=== PATIENT | female | born 1955 | race Hispanic/Latino ===

== ENCOUNTER → 2017-09-13 | Outpatient (CLI) | payer MEDICARE ==
--- NOTE | 2017-09-13 10:19 | Diagnostic Imaging Report ---
Exam: Head CT without contrast History: Headache Comparison studies: None Technique: Axial images were obtained from the skull base to the vertex. Coronal and sagittal images reconstructed from the axial data. Intravenous contrast: None Findings: Scalp: No abnormalities. Bones: No fractures, blastic or lytic lesions. Brain sulci: Appropriate for age. Ventricles: Normal in size and configuration. No hydrocephalus. Extra-axial spaces: No masses, no fluid collection. Parenchyma: No abnormal densities. No masses, acute hemorrhage, acute or chronic vascular insults. Sellar/suprasellar region: No abnormalities. Craniocervical junction: Patent foramen magnum. No Chiari one malformation. IMPRESSION: No abnormalities. Signed by: Dr. Mono Torres M.D. on 09/13/2017 10:15 AM
== END ==
LOC: CT 09:26
PROVIDERS: ATTEND Internal Medicine
DX: R51 Headache (principal)
CPT/HCPCS: 70450

== ENCOUNTER → 2019-03-13 | Day surgery (SDC) | payer MEDICARE ==
[2019-03-11 14:51] LABS: BASOPHILS % 0.6 % (0.0-1.0); EOSINOPHILS # (AUTO) 0.2 (0.0-0.4); EOSINOPHILS % 2.6 % (0.0-6.0); HEMATOCRIT 40.5 % (34.2-44.1); HEMOGLOBIN 13.2 g/dL (12.0-16.0); LYMPHOCYTES # (AUTO) 1.8 (1.0-3.2); LYMPHOCYTES % 28.4 % (18.0-39.1); MEAN CORPUSCULAR HEMOGLOBIN 29.1 pg (28-32); MEAN CORPUSCULAR HGB CONC 32.6 g/dL (31-35); MEAN CORPUSCULAR VOLUME 89.4 fL (81-99); MONOCYTES # (AUTO) 0.5 (0.2-0.8); NEUTROPHILS % 61.2 % (38.7-80.0); PLATELET COUNT 280 x10e3/uL (140-360); RED BLOOD COUNT 4.53 x10e6/uL (3.6-5.1); RED CELL DISTRIBUTION WIDTH 13.2 % (11.7-14.4)
[2019-03-11 15:05] LABS: INR 0.92; PROTHROMBIN TIME 12.9 seconds (11.9-14.5)
[2019-03-11 15:13] LABS: ALANINE AMINOTRANSFERASE 30 IU/L (0-55); ALBUMIN 3.9 g/dL (3.5-5.0); ALBUMIN/GLOBULIN RATIO 0.9 (0.8-2.0); ALKALINE PHOSPHATASE 122 IU/L (40-150); ANION GAP 11.3 mmol/L (8-16); BLOOD UREA NITROGEN 9 mg/dL (7-26); BUN/CREATININE RATIO 11 (6-25); CALCIUM 9.8 mg/dL (8.4-10.2); CARBON DIOXIDE 28 mmol/L (22-29); CHLORIDE 104 mmol/L (98-107); EST GLOMERULAR FILTRATION RATE > 60 ML/MIN (60-); GLUCOSE 92 mg/dL (74-118); POTASSIUM 4.3 mmol/L (3.5-5.1); SODIUM 139 mmol/L (136-145)
[~2019-03-13] VITALS: Ht 162.6 cm; Wt 99.8 kg
[~2019-03-13] MED LIST: ASPIR 8181 MG PO; FENTANYL CITRATE/PF 100MCG/2 ML INJ ONE; HEPARIN SOD (PORCINE) 1000 UNIT/ML 30ML ONE; HEPARIN SOD/SOD CHLORIDE 2,000 ML ONE; IOPAMIDOL 370 MG/ML 200 ML INFUS..BTL INJ ONE; LIDOCAINE HCL 2% LOCAL 20 ML VIAL ONE; LINZESS PO; LIPITOR20 MG PO; MIDAZOLAM HCL 2 MG/2 ML VIAL ONE; NORTRIPTYLINE H50 MG PO; SODIUM CHLORIDE 0.9% 1000ML 1,000 ML ONE; TOPROL XL25 MG PO; VERAPAMIL HCL 2.5 MG/ML 2 ML VIAL ONE; ZOLOFT50 MG PO
--- OUTSIDE RECORDS SUMMARY | 2019-03-13 12:16 | XMS REPORT | Clinical Summary ---
Author Author [facility] Organization [facility] Address Unknown Phone Unavailable Care Team Providers Care Lockstitch Front Maker Name Role Phone Elva Worrell MD PCP Allergies No Known Allergies Medications End Date Status Medication Sig Dispensed Refills Start Date Active sertraline (ZOLOFT) 100 Take 200 mg 0 MG tablet by mouth nightly. Active nortriptyline (PAMELOR) Take 50 mg by 0 50 MG capsule mouth 9 nightly. Active metoprolol succinate XL Take 12.5 mg 0 (TOPROL-XL) 25 mg 24 hr by mouth tablet every morning. Active atorvastatin (LIPITOR) 40 Take 40 mg by 0 MG tablet mouth nightly. Active esomeprazole (NexIUM) 40 Take 40 mg by 0 MG capsule mouth every morning. Active aspirin (ECOTRIN) 81 MG Take 81 mg by 0 enteric coated tablet mouth every evening. Active linaCLOtide (LINZESS) 290 Take 290 mcg 0 mcg capsule by mouth daily as needed. 02/07/2019 Discontinued ibuprofen (ADVIL,MOTRIN) Take 200 mg 0 200 MG tablet by mouth every 6 (six) hours as needed for mild pain. Active Problems Problem Noted Date Chest pain 02/06/2019 Encounters Care Team Description Date Type Specialty Kemi Dyer RN 02/09/2019 Patient Quality Outreach de Blake Vargas MD Al-Lahiq, Maha, MD Chest pain, unspecified type (Primary Dx) 02/06/2019 Emergency General Internal Medicine - 02/07/2019 Teresita Hutchinson MD Lower abdominal pain (Primary Dx); Essential hypertension 02/05/2019 Emergency Emergency Medicine after 03/12/2018 Social History Date Tobacco Use Types Packs/Day Years Used Never Smoker Smokeless Tobacco: Never Used Alcohol Use Drinks/Week oz/Week Comments Not Currently Sex Assigned at Date Recorded Not on file Industry Job Start Date Occupation Not on file Not on file Not on file Travel End Travel History Travel Start No recent travel history available. Last Filed Vital Signs Time Taken Vital Sign Reading 02/07/2019 10:49 AM CDT Blood Pressure 145/68 02/07/2019 10:49 AM CDT Pulse 67 02/07/2019 10:49 AM CDT Temperature 36.6 C (97.9 F) 02/07/2019 10:49 AM CDT Respiratory Rate 18 02/07/2019 10:49 AM CDT Oxygen Saturation 96% - Inhaled Oxygen - Concentration 02/06/2019 1:19 AM CDT Weight 99.8 kg (220 lb) 02/06/2019 1:19 AM CDT Height 157.5 cm (5' 2") 02/06/2019 1:19 AM CDT Body Mass Index 40.24 Plan of Treatment Health Maintenance Due Date Last Done Comments BREAST CANCER SCREENING 2006 COLONOSCOPY SCREENING 2006 SHINGLES VACCINES (#1) 2006 INFLUENZA VACCINE 03/19/2019 Procedures Comments Procedure Name Priority Date/Time Associated Diagnosis THYROID STIMULATING Routine 02/07/2019 HORMONE 5:44 AM CDT LIPID PANEL Routine 02/07/2019 5:44 AM CDT ECHOCARDIOGRAM 2D Routine 02/06/2019 COMPLETE W MMODE SPECTRAL 3:11 PM CDT COLOR DOPPLER (98000) ESTIMATED GFR Routine 02/06/2019 9:25 AM CDT TROPONIN Timed 02/06/2019 9:25 AM CDT COMPREHENSIVE METABOLIC Routine 02/06/2019 PANEL 9:25 AM CDT HC COMPLETE BLD COUNT Routine 02/06/2019 W/AUTO DIFF 9:25 AM CDT TROPONIN Timed 02/06/2019 5:[address] ANGIOGRAM PE CHEST STAT 02/06/2019 3:07 AM CDT XR CHEST 1 VW PORTABLE STAT 02/06/2019 1:35 AM CDT D-DIMER STAT 02/06/2019 1:35 AM CDT ESTIMATED GFR STAT 02/06/2019 1:35 AM CDT B NATRIURETIC PEPTIDE STAT 02/06/2019 1:35 AM CDT COMPREHENSIVE METABOLIC STAT 02/06/2019 PANEL 1:35 AM CDT HC COMPLETE BLD COUNT STAT 02/06/2019 W/AUTO DIFF 1:35 AM CDT TROPONIN STAT 02/06/2019 1:35 AM CDT ECG 12-LEAD STAT 02/06/2019 1:19 AM CDT ECG ED PRELIMINARY Routine 02/06/2019 INTERPRETATION 1:[address] ABDOMEN PELVIS W STAT 02/05/2019 CONTRAST 4:37 PM CDT GRAM STAIN STAT 02/05/2019 4:23 PM CDT URINE CULTURE STAT 02/05/2019 4:23 PM CDT URINALYSIS SCREEN AND STAT 02/05/2019 MICROSCOPY, WITH REFLEX 4:12 PM CDT TO CULTURE ESTIMATED GFR STAT 02/05/2019 3:10 PM CDT HEPATIC FUNCTION PANEL STAT 02/05/2019 3:10 PM CDT LIPASE LEVEL STAT 02/05/2019 3:10 PM CDT BASIC METABOLIC PANEL STAT 02/05/2019 3:10 PM CDT HC COMPLETE BLD COUNT STAT 02/05/2019 W/AUTO DIFF 3:10 PM CDT after 03/12/2018 Results * Thyroid stimulating hormone (02/07/2019 5:44 AM CDT) TSH 2.48 0.27 - 4.20 uIU/mL [facility] Specimen Plasma specimen Performing Organization Address [facility] [place] Number [place] [address] [address] [place] [phone] PATHOLOGY AND GENOMIC MEDICINE [facility] [address] [address] * Lipid panel (02/07/2019 5:44 AM CDT) Cholesterol 129 <200 mg/dL [facility] Triglycerides 95 (A) <150 mg/dL [facility] HDL cholesterol 55 >40 mg/dL [facility] LDL cholesterol 64Comment: Result obtained by <100 mg/dL [facility] direct LDL measurement [facility] Lipid panel [facility] interpretation Comment: [facility] Total Cholesterol [facility] (mg/dL) <200 Desirable 200-239Borderline -high >=240High Triglycerides (mg/dL) <150 Normal 150-199Borderline -high 200-499High >=500Very high HDL Cholesterol (mg/dL) <40Low (male) <40Low (female) LDL Cholesterol (mg/dL) <100 Optimal 100-129Near or above optimal 130-159Borderline -high 160-189High >=190Very high Risk Catergories that modify LDL goals. Risk Catergories LDL goal (mg/dL) CHD and CHD risk equivalent<100 (10-year risk >20%) Multiple (2+) risk factors <130 (10-year risk=<20%) 0-1 risk factors <160 (<10-year risk) Defining levels of lipids in metabolic syndrome Triglycerides >=150 mg/dL HDL Cholesterol Men <40 mg/dL Women <40 mg/dL Non-HDL cholesterol is a second target for therapy in persons with high triglycerides (>=200 mg/dL) Specimen Plasma specimen Performing Organization Address [facility] Cent[facility]ode [place] [address] [address] [place] [phone] PATHOLOGY AND GENOMIC MEDICINE [facility] [address] * Echocardiogram complete w contrast and 3D if needed (02/06/2019 3:11 PM CDT) Velocity Ratio 0.72 m/s [facility] (V1/V2) IVS,d 1.14 cm [facility] Ao root annulus 3.21 cm [facility] EF 59.51 % [facility] LA volume 31.00 cm3 [facility] LVPWD,d 0.84 cm [facility] AoV Mean PG 6.06 mmHg [facility] AV LVOT peak 5.99 mmHg [facility] gradient MV valve area p 3.45 cm2 [facility] 1/2 method E/A ratio 0.80 [facility] E wave 196.20 msec [facility] decelartion time LVOT Diam,S 1.86 cm [facility] LVOT area 2.72 cm2 [facility] LVOT Vmax 1.22 m/s [facility] LVOT VTI 0.24 m [facility] AoV Peak PG 11.46 mmHg [facility] MV Peak E Ghassan 0.76 m/s [facility] MV stenosis 63.82 ms [facility] pressure 1/2 time MV Peak A Ghassan 0.95 m/s [facility] LV Vol,s A2C 30.42 mL [facility] LV Vol,d A2C 86.18 mL [facility] AoV Area, Vmax 1.97 cm2 [facility] AoV Area, VTI 2.00 cm2 [facility] AoV Vmax 1.69 m/s [facility] LA Area d A4C 39 cm2 [facility] LV,d 4.06 cm [facility] LV,s 2.79 cm [facility] LV Vol,d A4C 93.97 ml [facility] LV Vol,s A4C 35.49 ml [facility] RVSP (TR) 20.28 mmHg [facility] TR Vpeak 2.25 mm/s [facility] MV E A ratio 0.81 SYNGO RA pressure 5.00 mmHg [facility] TR pk grad 25 mmHg [facility] MR peak grad 41.56 mmHg [facility] RVSP 20.28 mmHg [facility] LV SYS VOL 29.32 ml [facility] LV MONTOYA VOL 72.41 ml [facility] LA diam s 3.50 cm [facility] LA Vol MOD A4C 38.54 ml [facility] LV SV Teich 2D 43.09 ml [facility] LVOT SI 32.29 ml/m2 [facility] AoV Cusp sep 1.82 [facility] Aortic Root 3.20 cm [facility] AoV Vmn 1.14 [facility] IVS s 2D 1.53 [facility] LA Ao Ratio 1.08 [facility] Mmode D E excurs 1.30 [facility] E f slope 0.13 [facility] E prime lat 0.10 [facility] E shannon sept 0.09 [facility] PV acc T slope 8.10 [facility] PV AT 93.43 msec [facility] AoV VTI 0.32 m [facility] LV EF,A2C 64.70 % [facility] LV EF,A4C 62.23 % [facility] LV EF,BP 62.32 % [facility] [place],d A2C 7.18 cm [facility] [place],d A4C 7.13 cm [facility] [place],s A2C 5.63 cm [facility] [place],s A4C 6.23 cm [facility] LV SV,A2C 55.75 % [facility] LV SV,A4C 58.48 % [facility] LV Vol,d BP 90.02 ml [facility] LV Vol,s BP 33.92 nl [facility] MR Vmax 3.22 m/s [facility] LVOT Vmn 0.77 [facility] Pt Size 157.48 [facility] Pt Wt 99.79 [facility] LVOT mean grad 2.70 mmHg [facility] LVPW s PLAX 1.37 cm [facility] MV Decel slope 3.89 m/s2 [facility] Specimen Narrative Performed At [facility] Left ventricular systolic function is normal. Left Ventricular ejection fraction is 55 - 60%. Spectral Doppler shows impaired relaxation pattern of left ventricular diastolic filling. Suboptimal study. Valve structure and right atrium not well visualized. Performing Organization Address City/State/Zipcode Phone Number [facility] [address] [place] [address] * Estimated GFR (02/06/2019 9:25 AM CDT) Only the most recent of 3 results within the time period is included. Estimated GFR 68 mL/min/1.73 m2 [facility] Comment: ORTHODOXY CLEAR [facility] rpretation G1 >=90 Normal or high G2 60-89Mildly decreased A3p47-85 Mildly to moderately decreased [id number] Moderately to severely decreased G4 15-29Severely decreased G5 <15Kidney failure The eGFR was calculated using the Chronic Kidney Disease Epidemiology Collaboration (CKD-EPI) equation. Interpretation is based on recommendations of the National Kidney Foundation-Kidney Disease Outcomes Quality Initiative (NKF-KDOQI) published in 2014. Specimen Plasma specimen Performing Organization Address City/[facility]/Zipcode Phone Number [address] [place] [address] PATHOLOGY AND GENOMIC MEDICINE [address] * Troponin (02/06/2019 9:25 AM CDT) Only the most recent of 3 results within the time period is included. Pathologist [facility] Troponin <0.006 0.000 - 0.040 ng/mL [facility] Comment: [facility] changed methodology effective: 12/23/2018 at 10:00 am The new method has a 99th percentile cutoff of 0.040 ng/mL Specimen Plasma specimen Performing Organization Address [facility] Phone Number [address] [place] [address] PATHOLOGY AND GENOMIC MEDICINE [address] * CBC with platelet and differential (02/06/2019 9:25 AM CDT) Only the most recent of 3 results within the time period is included. Pathologist [facility] WBC 6.42 4.50 - 11.00 k/uL [facility] RBC 4.09 (L) 4.20 - 5.50 m/uL [facility] HGB 12.1 12.0 - 16.0 g/dL [facility] HCT 37.7 37.0 - 47.0 % [facility] MCV 92.2 82.0 - 100.[address] [facility] MCH 29.6 27.0 - 34.[address] [facility] MCHC 32.1 31.0 - 37.0 g/dL [facility] RDW - SD 44.7 37.0 - 55.[address] [facility] MPV 10.4 8.8 - 13.[address] [facility] Platelet count 263 150 - 400 k/uL [facility] Nucleated RBC 0.00 /[address] [facility] Neutrophils 61.5 39.0 - 69.0 % [facility] Lymphocytes 26.5 25.0 - 45.0 % [facility] Monocytes 8.6 0.0 - 10.0 % [facility] Eosinophils 2.5 0.0 - 5.0 % [facility] Basophils 0.6 0.0 - 1.0 % [facility] Specimen Blood Performing Organization Address City/State/Zipcode [place] Number [place] [address] [place] [address] PATHOLOGY AND GENOMIC MEDICINE [facility] [address] [place] [address] [facility] * Comprehensive metabolic panel (02/06/2019 9:25 AM CDT) Only the most recent of 2 results within the time period is included. Sodium 144 135 - 148 mEq/L [facility] Potassium 3.8 3.5 - 5.0 mEq/L [facility] Chloride 105 98 - 112 mEq/L [facility] CO2 27 24 - 31 mEq/L [facility] Anion gap 12@ANIO 7 - 15 mEq/L [facility] BUN 13 8 - 23 mg/dL [facility] Creatinine 0.90 0.50 - 0.90 mg/dL [facility] Glucose 107 (H) 65 - 99 mg/dL [facility] Calcium 9.3 8.8 - 10.2 mg/dL [facility] Protein 7.6 6.3 - 8.3 g/dL [facility] Comment: [facility] 4.6-7.0 g/dL 1 week 4.4-7.6 g/dL 7 months-1year 5.1-7.3 g/dL 1-2 years5.6-7 .5 g/dL >3 years6.0-8 .0 g/dL 18-150 6.3-8.3 g/dL Albumin 3.9 3.5 - 5.0 g/dL [facility] A/G ratio 1.1 0.7 - 3.[address] [facility] Alkaline 117 (H) 35 - 104 U/L [facility] phosphatase [facility] AST 15 10 - 35 U/L [facility] ALT 20 5 - 50 U/L [facility] Total bilirubin 0.2 0.0 - 1.2 mg/dL [facility] Specimen Plasma specimen Performing Organization Address City/State/Zipcode [place] Number [place] [address] [place] [address] PATHOLOGY AND GENOMIC MEDICINE [facility] [address] [place] [address] [facility] * CT Angiogram Pe Chest (02/06/2019 3:07 AM CDT) Specimen Narrative Performed At EXAMINATION:CT ANGIOGRAM PE CHEST RADIANT CLINICAL HISTORY: pleuritic cpelevated d-dimer TECHNIQUE:CT angiographic images of the chest were obtained during intravenous administration of iodinated contrast. Computerized reformatted images and 3-D MIP images were also obtained and archived (CT pulmonary embolus protocol).CT scans are performed using radiation dose reduction techniques.Technical factors are evaluated and adjusted to ensure appropriate moderation of exposure.Automated dose management technology is applied to adjust radiation exposure while achieving a diagnostic quality image. CT imaging was performed with iterative reconstruction techniques and/or automated exposure control to reduce radiation dose. COMPARISON:None. Findings: There are no filling defects within the pulmonary arterial system to suggest a pulmonary embolus. No dissection or aneurysm is seen. Left lingular subsegmental atelectasis is seen. No consolidation or pleural effusion is seen. No pulmonary mass or nodule is seen. No mediastinal hematoma or lymphadenopathy is seen. Visualized upper abdomen shows no acute abnormality. Small hepatic cyst in the left lobe is noted measuring 2.2 cm. IMPRESSION: 1. No evidence of pulmonary embolus. 2. Left lingular subsegmental atelectasis. Otherwise no acute abnormality identified in the chest. [facility]-[id number] Procedure Note Interface, Radiology Results Incoming - 02/06/2019 3:20 AM CDT EXAMINATION: CT ANGIOGRAM PE CHEST CLINICAL HISTORY: pleuritic cp elevated d-dimer TECHNIQUE: CT angiographic images of the chest were obtained during intravenous administration of iodinated contrast. Computerized reformatted images and 3-D MIP images were also obtained and archived (CT pulmonary embolus protocol). CT scans are performed using radiation dose reduction techniques. Technical factors are evaluated and adjusted to ensure appropriate moderation of exposure. Automated dose management technology is applied to adjust radiation exposure while achieving a diagnostic quality image. CT imaging was performed with iterative reconstruction techniques and/or automated exposure control to reduce radiation dose. COMPARISON: None. Findings: There are no filling defects within the pulmonary arterial system to suggest a pulmonary embolus. No dissection or aneurysm is seen. Left lingular subsegmental atelectasis is seen. No consolidation or pleural effusion is seen. No pulmonary mass or nodule is seen. No mediastinal hematoma or lymphadenopathy is seen. Visualized upper abdomen shows no acute abnormality. Small hepatic cyst in the left lobe is noted measuring 2.2 cm. IMPRESSION: 1. No evidence of pulmonary embolus. 2. Left lingular subsegmental atelectasis. Otherwise no acute abnormality identified in the chest. [id number] Performing Organization Address [facility] Phone Number [facility] [address] [place] [address] * XR Chest 1 Vw Portable (02/06/2019 1:35 AM CDT) Specimen Narrative Performed At Examination:XR CHEST 1 VW PORTABLE RADIANT Clinical History:chest pain Comparison: None. Technique: Single frontal view of the chest is obtained. Findings: Left base subsegmental atelectasis is seen. The heart size is normal. No pleural effusion is seen. Impression: Mild left base subsegmental atelectasis otherwise no acute infiltrate. [facility]-[id number] Procedure Note Hm Interface, Radiology Results Incoming - 02/06/2019 1:54 AM CDT Examination: XR CHEST 1 VW PORTABLE Clinical History: chest pain Comparison: None. Technique: Single frontal view of the chest is obtained. Findings: Left base subsegmental atelectasis is seen. The heart size is normal. No pleural effusion is seen. Impression: Mild left base subsegmental atelectasis otherwise no acute infiltrate. [id number] Performing Organization Address [facility] Phone Number [facility] [address] [place] [address] * D-dimer (02/06/2019 1:35 AM CDT) D-dimer 0.65 (H) 0.00 - 0.40 ug/mL [facility] Comment: FEU ORTHODOXY CLEAR Units are ug/ml Fibrinogen [facility] Equivalent Unit. When combined with low clinical probability, D-dimer results of less than 0.5 ug/ml FEU have a good negativepredictive value in excluding PE or DVT. For D-dimer results greater than 0.5ug/ml FEU further testing is indicated if PE or DVT is suspectedclinically. Elevated D-dimer results have been reported in DVT, PE, and DIC cases and may indicate the presence of a clot. D-dimer results may be elevated due to old age, , inflammatory diseases, trauma, post-operative states, sepsis, and malignancies. Specimen Blood Performing Organization Address [facility] Phone Number [address] [place] [address] PATHOLOGY AND GENOMIC MEDICINE [address] * B natriuretic peptide (02/06/2019 1:35 AM CDT) BNP 13 0 - 100 pg/mL [facility] Specimen Blood Performing Organization Address [facility] Phone Number [address] [place] [address] PATHOLOGY AND GENOMIC MEDICINE [address] * ECG 12 lead (02/06/2019 1:19 AM CDT) Ventricular 73 [facility] rate Atrial rate 73 [facility] [place] interval 158 [facility] QRSD interval 100 [facility] QT interval 412 [facility] QTC interval 453 [facility] P axis 1 49 [facility] QRS axis 1 -13 [facility] T wave axis 6 [facility] EKG impression Normal sinus rhythm-Normal [facility] ECG-No previous ECGs available- Specimen Narrative Performed At Performing Organization Address [facility] Phone Number [facility] M[facility] [address] [place] [address] * ECG ED Preliminary Interpretation - Not an Order (02/06/2019 1:18 AM CDT) Narrative Performed At Blake Mcintyre MD 02/06/20194:12 AM ECG ED Preliminary Interpretation - Not an Order Performed by: Blake Mcintyre MD Authorized by: Blake Mcintyre MD ECG reviewed by ED Physician in the absence of a parachute crown sewer: no Interpretation: Interpretation: normal Rate: ECG rate:63 ECG rate assessment: normal Rhythm: Rhythm: sinus rhythm QRS: QRS axis:Normal QRS intervals:Normal Conduction: Conduction: normal ST segments: ST segments:Normal T waves: T waves: inverted Inverted:V3 * CT Abdomen Pelvis W Contrast (02/05/2019 4:37 PM CDT) Specimen Narrative Performed At EXAMINATION:CT ABDOMEN PELVIS W CONTRAST RADIANT CLINICAL HISTORY: lower abd pain TECHNIQUE: Multiple axial images of the abdomen and pelvis were obtained following intravenous administration of iodinated contrast. Sagittal and coronal computerized reformatted images were also obtained. Approximately 100 cc of Omnipaque [address] scan performed using radiation dose reduction techniques. Technical factors are evaluated and adjusted to ensure appropriate moderation of exposure. Automated dose management technology is applied to adjust the radiation dose to minimize expose whileachieving a diagnostic quality image. COMPARISON:None. FINDINGS: Lung bases: Patchy left basilar platelike subsegmental atelectasis and bibasilar dependent atelectasis are noted.. Liver: The liver is normal in contour and size. Fatty infiltration of the liver is seen. 2 cysts are seen within the lateral segment of the left lobe of the liver with the largest cyst measuring approximately 1.8 cm. No enhancing mass is seen. There is no intrahepatic biliary dilatation.. . Gallbladder: Unremarkable. Pancreas: Moderate fatty infiltration of the pancreas is noted. The pancreas is otherwise unremarkable. No inflammatory process. The pancreatic duct is within normal limits. Spleen: The spleen is normal in appearance.. Kidneys and ureters: The kidneys function symmetrically. An approximately 2.1 cm exophytic cyst is seen within the lower pole of the left kidney. There is no enhancing renal lesion. No renal stone is seen. There is no evidence of hydronephrosis.. The ureters are normal in course and caliber. Adrenal glands: Unremarkable. GI tract: The small bowel is normal in course and caliber. Scattered diverticula are seen of the descending colon and sigmoid colon. Postsurgical change of anastomosis of the sigmoid colon is noted. The colon is otherwise unremarkable. No bowel wall thickening is identified. There is no acute inflammatory process. The appendix is normal. No right lower quadrant inflammation is seen. The stomach is unremarkable. Fluid: None. Pelvis: Bladder: The urinary bladder is unremarkable. Genitalia: Limited evaluation of the uterus and ovaries is unremarkable. Fluid: None. Bones: Unremarkable. Retroperitoneum/intraperitoneum: No retroperitoneal or mesenteric pathologic lymphadenopathy is seen. Vasculature: No evidence of aortic aneurysm or dissection.The mesenteric vessels and visceral vessel are patent. Abdominal wall: Unremarkable. IMPRESSION: Mild diverticulosis without evidence of acute diverticulitis. No CT evidence of appendicitis, gastroenteritis or small bowel obstruction. Bosniak category 1 left renal cyst. Mild hepatitic steatosis and 2 simple left hepatitic cysts. Unremarkable exam otherwise. [id number] Procedure Note Hm Interface, Radiology Results Incoming - 02/05/2019 4:56 PM CDT EXAMINATION: CT ABDOMEN PELVIS W CONTRAST CLINICAL HISTORY: lower abd pain TECHNIQUE: Multiple axial images of the abdomen and pelvis were obtained following intravenous administration of iodinated contrast. Sagittal and coronal computerized reformatted images were also obtained. Approximately 100 cc of Omnipaque [address] scan performed using radiation dose reduction techniques. Technical factors are evaluated and adjusted to ensure appropriate moderation of exposure. Automated dose management technology is applied to adjust the radiation dose to minimize expose while achieving a diagnostic quality image. COMPARISON: None. FINDINGS: Lung bases: Patchy left basilar platelike subsegmental atelectasis and bibasilar dependent atelectasis are noted.. Liver: The liver is normal in contour and size. Fatty infiltration of the liver is seen. 2 cysts are seen within the lateral segment of the left lobe of the liver with the largest cyst measuring approximately 1.8 cm. No enhancing mass is seen. There is no intrahepatic biliary dilatation.. . Gallbladder: Unremarkable. Pancreas: Moderate fatty infiltration of the pancreas is noted. The pancreas is otherwise unremarkable. No inflammatory process. The pancreatic duct is within normal limits. Spleen: The spleen is normal in appearance.. Kidneys and ureters: The kidneys function symmetrically. An approximately 2.1 cm exophytic cyst is seen within the lower pole of the left kidney. There is no enhancing renal lesion. No renal stone is seen. There is no evidence of hydronephrosis.. The ureters are normal in course and caliber. Adrenal glands: Unremarkable. GI tract: The small bowel is normal in course and caliber. Scattered diverticula are seen of the descending colon and sigmoid colon. Postsurgical change of anastomosis of the sigmoid colon is noted. The colon is otherwise unremarkable. No bowel wall thickening is identified. There is no acute inflammatory process. The appendix is normal. No right lower quadrant inflammation is seen. The stomach is unremarkable. Fluid: None. Pelvis: Bladder: The urinary bladder is unremarkable. Genitalia: Limited evaluation of the uterus and ovaries is unremarkable. Fluid: None. Bones: Unremarkable. Retroperitoneum/intraperitoneum: No retroperitoneal or mesenteric pathologic lymphadenopathy is seen. Vasculature: No evidence of aortic aneurysm or dissection. The mesenteric vessels and visceral vessel are patent. Abdominal wall: Unremarkable. IMPRESSION: Mild diverticulosis without evidence of acute diverticulitis. No CT evidence of appendicitis, gastroenteritis or small bowel obstruction. Bosniak category 1 left renal cyst. Mild hepatitic steatosis and 2 simple left hepatitic cysts. Unremarkable exam otherwise. [id number] Performing Organization Address City/[facility]/[place] [address] * Gram stain (02/05/2019 4:23 PM CDT) Pathologist [facility] Gram stain No WBC's or organisms seen. CRAIG result Comment: ORTHODOXY Specimen [facility] Specimen Source: Urine Specimen Site: Clean catch Specimen Urine Performing Organization Address City/[facility] Phone Number [facility] DEPARTMENT OF [address] [place] [address] PATHOLOGY AND GENOMIC MEDICINE [address] * Urine culture (02/05/2019 4:23 PM CDT) Pathologist [facility] Urine culture Mixed gabino <=10-3 col/cc CRAIG isolate Comment: ORTHODOXY Specimen Information HOSPITAL Specimen Source: Urine Specimen Site: Clean catch Specimen Urine Performing Organization Address [facility] Phone Number [facility] DEPARTMENT OF [address] [place] [address] PATHOLOGY AND GENOMIC MEDICINE [address] * Urinalysis screen and microscopy, with reflex to culture (02/05/2019 4:12 PM CDT) Specimen site Clean catch [facility] Color, UA Straw [facility] Appearance, UA Clear [facility] Specific 1.004 1.001 - 1.035 C[facility]IG gravity, UA [facility] pH, UA 6.0 5.0 - 8.[address] [facility] Protein, UA Negative Negative [facility] Glucose, UA Negative Negative [facility] Ketones, UA Negative Negative [facility] Bilirubin, UA Negative Negative [facility] Blood, UA Negative Negative [facility] Nitrite, UA Negative Negative [facility] Urobilinogen, Negative <2.0 [facility] Leukocyte Trace (A) Negative CRAIG esterase, UA [facility] Epithelial Few Few /HPF [facility] cells, UA [facility] Round Few 0 - 1 /HPF [facility]IG epithelial [facility] cells, [facility] WBC, UA 0-5 0 - 4 /HPF [facility] RBC, UA 0-5 0 - 5 /HPF [facility] Bacteria, UA Few None seen [facility] Yeast, UA None seen [facility] Yeast with None seen [facility] Specimen Urine Performing Organization Address City/[facility] Phone Number [address] [place] [address] PATHOLOGY AND GENOMIC MEDICINE [address] * Lipase level (02/05/2019 3:10 PM CDT) Lipase 19 13 - 60 U/L [facility] Specimen Plasma specimen Performing Organization Address City/[facility] Phone Number [address] [place] [address] PATHOLOGY AND GENOMIC MEDICINE [address] * Hepatic function panel (02/05/2019 3:10 PM CDT) Albumin 3.9 3.5 - 5.0 g/dL [facility] Total bilirubin <0.2 0.0 - 1.2 mg/dL [facility] Bilirubin <0.1 0.0 - 0.3 mg/dL [facility] direct [facility] Alkaline 118 (H) 35 - 104 U/L [facility] phosphatase [facility] Protein 8.0 6.3 - 8.3 g/dL CRAIG Comment: [facility] 4.6-7.0 g/dL 1 week 4.4-7.6 g/dL 7 months-1year 5.1-7.3 g/dL 1-2 years5.6-7 .5 g/dL >3 years6.0-8 .0 g/dL 18-150 6.3-8.3 g/dL ALT 24 5 - 50 U/L [facility] AST 17 10 - 35 U/L [facility] Specimen Plasma specimen Performing Organization Address City/[facility] Phone Number [facility] [place] [id number] [place] [address] [place] [address] PATHOLOGY AND GENOMIC MEDICINE [facility] [id number] [place] [address] * Basic metabolic panel (02/05/2019 3:10 PM CDT) Sodium 140 135 - 148 mEq/L [facility] Potassium 3.9 3.5 - 5.0 mEq/L [facility] Chloride 103 98 - 112 mEq/L [facility] CO2 27 24 - 31 mEq/L [facility] Anion gap 10@ANIO 7 - 15 mEq/L [facility] BUN 13 8 - 23 mg/dL [facility] Creatinine 0.90 0.50 - 0.90 mg/dL [facility] Glucose 128 (H) 65 - 99 mg/dL [facility] Calcium 9.0 8.8 - 10.2 mg/dL [facility] Specimen Plasma specimen Performing Organization Address City/[facility] Cent[facility] Phone Number [facility] DEPARTMENT OF [address] [place] [address] [place] [address] PATHOLOGY AND GENOMIC MEDICINE [address] after 03/12/2018 Insurance Type Payer Benefit Subscriber ID Effective Phone Address Plan / Dates Group [facility] xxxxxxxx 2019-P SAUD boles Advance Directives Patient has advance care planning documents, and code status on file. For more i nformation, please contact: Tremaine Espinoza [address] [place] [address] Date Inactivated Comments Code Status Date Activated 02/07/2019 6:45 PM Full Code 02/06/2019 7:09 AM Code Status decision reached by: Patient
--- OUTSIDE RECORDS SUMMARY | 2019-03-13 12:17 | XMS REPORT ---
[facility] Address Unknown Phone Unavailable Care Team Providers Care Health [facility] Manager Name Role Phone ANTOLIN GERBER Unavailable Unavailable Payers Payer Name Policy Type Policy Number Effective Date Expiration Date Problems This patient has no known problems. Allergies, Adverse Reactions, Alerts Allergy Name Allergy Type Status Severity Reaction(s) Onset Date Inactive Date Treating Clinician Comments No Known Allergies DA Active U 2017-12-01 00:00:00 Medications This patient has no known medications. Encounters Start Date/Time End Date/Time Encounter Type Admission Type Attending Clinicians Care Facility Care Department Encounter ID 2018-04-09 00:00:00 2018-04-09 00:00:00 Outpatient [facility] [id number] 2017-08-01 00:00:00 2017-08-01 00:00:00 Outpatient [facility] [id number] 2017-06-18 00:00:00 2017-06-18 00:00:00 Outpatient [facility] [id number] 2017-05-06 08:00:13 2017-05-06 08:00:13 Outpatient [facility] [id number] 2017-04-30 10:47:53 2017-04-30 10:47:53 Outpatient [facility] [id number] 2017-04-30 08:03:55 2017-04-30 08:03:55 Outpatient [facility] [id number] 2017-03-28 13:43:34 2017-03-28 13:43:34 Outpatient [facility] [id number] 2017-02-14 10:58:14 2017-02-14 10:58:14 Outpatient [facility] [id number] 2017-01-31 08:48:19 2017-01-31 08:48:19 Outpatient [facility] [id number] 2017-01-18 06:55:56 2017-01-18 06:55:56 Outpatient [facility] [id number] 2017-01-18 00:00:00 2017-01-18 00:00:00 Outpatient [facility] [id number] 2017-01-11 00:00:00 2017-01-11 00:00:00 Outpatient [facility] [id number] 2017-01-07 10:38:20 2017-01-07 10:38:20 Outpatient [facility] [id number] 2017-01-07 10:38:20 2017-01-07 10:38:20 Outpatient [facility] [id number] 2017-01-04 10:21:37 2017-01-04 10:21:37 Outpatient [facility] [id number] 2017-01-03 09:02:31 2017-01-03 09:02:31 Outpatient [facility] [id number] 2017-01-02 12:01:39 2017-01-02 12:01:39 Outpatient [facility] [id number] 2016-12-31 10:54:35 2016-12-31 10:54:35 Outpatient [facility] [id number] 2016-12-28 10:11:20 2016-12-28 10:11:20 Outpatient [facility] [id number] 2016-12-27 09:07:18 2016-12-27 09:07:18 Outpatient [facility] [id number] 2016-12-27 00:00:00 2016-12-27 00:00:00 Outpatient [facility] [id number] 2016-12-26 09:56:42 2016-12-26 09:56:42 Outpatient [facility] [id number] 2016-12-26 09:56:39 2016-12-26 09:56:39 Outpatient [facility] [id number] 2016-12-25 11:01:34 2016-12-25 11:01:34 Outpatient [facility] [id number] 2016-12-25 10:15:58 2016-12-25 10:15:58 Outpatient [facility] [id number] 2016-12-24 09:55:59 2016-12-24 09:55:59 Outpatient [facility] [id number] 2016-12-24 08:25:11 2016-12-24 08:25:11 Outpatient [facility] [id number] 2016-12-21 10:33:55 2016-12-21 10:33:55 Outpatient [facility] [id number] 2016-12-19 00:00:00 2016-12-19 00:00:00 Outpatient [facility] [id number] 2016-12-17 09:35:27 2016-12-17 09:35:27 Outpatient [facility] [id number] 2016-12-17 09:35:26 2016-12-17 09:35:26 Outpatient [facility] [id number] 2016-12-14 00:00:00 2016-12-14 00:00:00 Outpatient [facility] [id number] 2016-12-12 12:18:51 2016-12-12 12:18:51 Outpatient [facility] [id number] 2016-12-10 08:21:37 2016-12-10 08:21:37 Outpatient [facility] [id number] 2016-12-10 08:21:35 2016-12-10 08:21:35 Outpatient [facility] [id number] 2016-12-07 13:14:41 2016-12-07 13:14:41 Outpatient [facility] [id number] 2016-12-07 10:11:29 2016-12-07 10:11:29 Outpatient [facility] [id number] 2016-12-05 12:12:00 2016-12-05 12:12:00 Outpatient [facility] [id number] 2016-12-03 10:51:33 2016-12-03 10:51:33 Outpatient [facility] [id number] 2016-11-30 00:00:00 2016-11-30 00:00:00 Outpatient [facility] [id number] 2016-11-28 13:26:34 2016-11-28 13:26:34 Outpatient [facility] [id number] 2016-11-28 10:06:14 2016-11-28 10:06:14 Outpatient [facility] [id number] 2016-11-27 07:44:41 2016-11-27 07:44:41 Outpatient [facility] [id number] 2016-11-26 10:30:57 2016-11-26 10:30:57 Outpatient [facility] [id number] 2016-11-23 10:02:27 2016-11-23 10:02:27 Outpatient [facility] [id number] 2016-11-21 11:30:27 2016-11-21 11:30:27 Outpatient [facility] [id number] 2016-11-21 10:18:39 2016-11-21 10:18:39 Outpatient [facility] [id number] 2016-11-19 11:01:13 2016-11-19 11:01:13 Outpatient [facility] [id number] 2016-11-19 10:29:44 2016-11-19 10:29:44 Outpatient [facility] [id number] 2016-11-12 13:33:14 2016-11-12 13:33:14 Outpatient [facility] [id number] 2016-11-08 09:59:44 2016-11-08 09:59:44 Outpatient [facility] [id number] 2016-11-07 08:30:20 2016-11-07 08:30:20 Outpatient [facility] [id number] 2016-10-31 00:00:00 2016-10-31 00:00:00 Outpatient [facility] [id number] 2016-10-30 11:50:35 2016-10-30 11:50:35 Outpatient [facility] [id number] 2016-10-24 09:29:23 2016-10-24 09:29:23 Outpatient [facility] [id number] 2016-10-17 09:27:32 2016-10-17 09:27:32 Outpatient [facility] [id number] 2016-10-13 07:09:58 2016-10-13 07:09:58 Outpatient [facility] [id number] 2016-10-12 10:01:01 2016-10-12 10:01:01 Outpatient [facility] [id number] 2016-10-09 09:10:42 2016-10-09 09:10:42 Outpatient [facility] [id number] 2016-10-04 09:29:44 2016-10-04 09:29:44 Outpatient [facility] [id number] 2016-10-03 07:08:29 2016-10-03 07:08:29 Outpatient [facility] [id number] 2016-08-08 08:30:22 2016-08-08 08:30:22 Outpatient [facility] [id number] 2016-08-02 09:38:18 2016-08-02 09:38:18 Outpatient [facility] [id number] 2016-07-18 07:53:03 2016-07-18 07:53:03 Outpatient [facility] [id number] 2016-06-27 10:48:12 2016-06-27 10:48:12 Outpatient [facility] [id number] 2016-06-22 10:33:39 2016-06-22 10:33:39 Outpatient [facility] [id number] Results Test Description Test Time Test Comments Text Results Atomic Results Result Comments COMPREHENSIVE METABOLIC PANEL 2018-12-08 13:45:00 SODIUM (test code=NA) 141 mmol/L 135-148 POTASSIUM (test code=K) 3.7 mmol/L 3.5-5.1 CHLORIDE (test code=CL) 104 mmol/L 101-109 CARBON DIOXIDE (test code=CO2) 30.8 mmol/L 21-32 ANION GAP (test code=GAP) 10 mmol/L 10-20 GLUCOSE (test code=GLU) 96 mg/dL 74-106 BLOOD UREA NITROGEN (test code=BUN) 16 mg/dL 3-21 CREATININE (test code=CREAT) 0.86 mg/dL 0.55-1.3 BUN/CREATININE RATIO (test code=BUN/CREA) 18.6 10-20 TOTAL PROTEIN (test code=PROT) 8.1 g/dL 6.5-8.4 ALBUMIN (test code=ALB) 3.6 g/dL 3.4-4.8 GLOBULIN (test code=GLOB) 4.5 G/DL 1-10 ALBUMIN/GLOBULIN RATIO (test code=A/G) 0.8 RATIO 0.75-1.50 CALCIUM (test code=CA) 8.8 mg/dL 8.4-10.2 BILIRUBIN TOTAL (test code=BILT) 0.20 mg/dL 0.0-1.0 SGOT/AST (test code=AST) 18 U/L 6-32 SGPT/ALT (test code=ALT) 41 U/L 12-78 Note: Change in REFERENCE RANGE due to new reagent method. ALKALINE PHOSPHATASE TOTAL (test code=ALKP) 122 U/L 38-126 CPK-MB [id number] 13:45:00* Test Item Value Reference Range Comments CREATINE KINASE (CK) (test code=CK) 154 U/L 26-192 CKMB (test code=CKMBT) 0.8 ng/mL 0.0-5.0 RELATIVE % INDEX (test code=REL%) 0.5 % [id number] 13:45:00* Test Item Value Reference Range Comments TROPONIN-I (test code=TROPI) <0.015 ng/mL 0.00-0.056 URINALYSIS [id number] 13:34:00* Test Item Value Reference Range Comments UA COLOR (test code=COLU) YELLOW YELLOW UA APPEARANCE (test code=APPU) CLEAR CLEAR UA GLUCOSE DIPSTICK (test code=DGLUU) norm mg/dL NEGATIVE UA BILIRUBIN DIPSTICK (test code=BILU) NEGATIVE mg/dL NEGATIVE UA KETONE DIPSTICK (test code=KETU) neg mg/dL NEGATIVE UA SPECIFIC GRAVITY (test code=SGU) 1.010 1.001-1.035 UA BLOOD DIPSTICK (test code=ADAN) neg Raulito/uL NEGATIVE UA PH DIPSTICK (test code=CHRISTIANE) 7.0 5.0-8.0 UA PROTEIN DIPSTICK (test code=PROU) neg mg/dL Neg-15 UA UROBILINIOGEN DIPSTICK (test code=URO) norm mg/dL 0.0-0.2 UA NITRITE DIPSTICK (test code=MACRINA) NEGATIVE NEGATIVE UA LEUKOCYTE ESTERASE DIPSTICK (test code=LEUU) 25 Dianna/uL (Trace) uL NEGATIVE UA WBC (test code=WBCU) 0-5 per HPF 0-5 UA RBC (test code=RBCU) 0-2 per HPF 0-5 UA EPITHELIAL CELLS (test code=EPIU) None seen per HPF Few UA BACTERIA (test code=BACU) NONE SEEN per HPF NONE Urine Source? Clean CatchCOMPREHENSIVE METABOLIC [id number] 13:32:00* Test Item Value Reference Range Comments SODIUM (test code=NA) 141 mmol/L 135-148 POTASSIUM (test code=K) 3.7 mmol/L 3.5-5.1 CHLORIDE (test code=CL) 104 mmol/L 101-109 CARBON DIOXIDE (test code=CO2) 30.8 mmol/L 21-32 ANION GAP (test code=GAP) 10 mmol/L 10-20 GLUCOSE (test code=GLU) 96 mg/dL 74-106 BLOOD UREA NITROGEN (test code=BUN) 16 mg/dL 3-21 CREATININE (test code=CREAT) 0.86 mg/dL 0.55-1.3 BUN/CREATININE RATIO (test code=BUN/CREA) 18.6 10-20 TOTAL PROTEIN (test code=PROT) gram/dL 6.4-8.2 ALBUMIN (test code=ALB) g/dL 3.4-5.0 GLOBULIN (test code=GLOB) g/dL 2.7-4.2 ALBUMIN/GLOBULIN RATIO (test code=A/G) 0.75-1.50 CALCIUM (test code=CA) 8.8 mg/dL 8.4-10.2 BILIRUBIN TOTAL (test code=BILT) mg/dL 0.2-1.2 SGOT/AST (test code=AST) IUnit/L 15-37 SGPT/ALT (test code=ALT) U/L 10-69 ALKALINE PHOSPHATASE TOTAL (test code=ALKP) IUnit/L 45-117 CPK-MB [id number] 13:32:00* Test Item Value Reference Range Comments CREATINE KINASE (CK) (test code=CK) IUnit/L 26-208 CKMB (test code=CKMBT) ng/mL 0-6.0 RELATIVE % INDEX (test code=REL%) % [id number] 13:32:00* Test Item Value Reference Range Comments TROPONIN-I (test code=TROPI) ng/mL 0-0.045 URINALYSIS [id number] 13:30:00* Test Item Value Reference Range Comments UA COLOR (test code=COLU) YELLOW YELLOW UA APPEARANCE (test code=APPU) CLEAR CLEAR UA GLUCOSE DIPSTICK (test code=DGLUU) norm mg/dL NEGATIVE UA BILIRUBIN DIPSTICK (test code=BILU) NEGATIVE mg/dL NEGATIVE UA KETONE DIPSTICK (test code=KETU) neg mg/dL NEGATIVE UA SPECIFIC GRAVITY (test code=SGU) 1.010 1.001-1.035 UA BLOOD DIPSTICK (test code=ADAN) neg Raulito/uL NEGATIVE UA PH DIPSTICK (test code=CHRISTIANE) 7.0 5.0-8.0 UA PROTEIN DIPSTICK (test code=PROU) neg mg/dL Neg-15 UA UROBILINIOGEN DIPSTICK (test code=URO) norm mg/dL 0.0-0.2 UA NITRITE DIPSTICK (test code=MACRINA) NEGATIVE NEGATIVE UA LEUKOCYTE ESTERASE DIPSTICK (test code=LEUU) 25 Dianna/uL (Trace) uL NEGATIVE UA WBC (test code=WBCU) per HPF 0-5 UA RBC (test code=RBCU) per HPF 0-5 UA EPITHELIAL CELLS (test code=EPIU) per HPF Few UA BACTERIA (test code=BACU) per HPF NONE Urine Source? Clean Catch- CT HEAD/BRAIN W/O [id number] 13:27:00 Name: LOAN THOMPSON [facility] : 1955 Age/S: 63 / F [address] [facility] Unit #: [id number] Loc: [place] [address] Phys: Laura Merchant MD Acct: [id number] Di s Date: Status: REG ER PHONE #: Exam Date: 12/08/2018 1305 FAX #: Reason: altered mental status EXAMS: CPT CODE: [id number] CT HEAD/BRAIN W/O CONT 19769 HISTORY: Confusion and di zziness. COMPARISON: None available CT brain without contrast: Automated exposure control. No acute intracranial bleeds or extra-axial collections are noted. No acute territorial vascular infa rction is noted. The sulci, gyri, ventricles and subarachnoid spac es and the basilar cisterns are normal for patient's age. No herniation or hydrocephalus or midline shift is noted. Mild periventricul ar ischemic gliosis is noted. Age-appropriate atrophy is noted as well. Portions of the visualized paranasal sinuses are normal. No obvious bony calvarial defect is noted. Unfused posterior arch of C1 vertebral body. IMPRESSION: No acute intracra nial bleeds or extra-axial collections. No acute territorial v ascular infarction. No herniation or hydrocephalus or midline shift. Chronic white matter ischemic disease and atrophy . Electronically Signed by Margaux Bernabe on 11/18 at 1327 Reported and signed by: Naga Tilley CC: Antolin Gerber MD; Lori Merchant MD Technologist :Martina Trujillo CTDI: DLP: Trnscb Date/Time: 11/18 (1327) [email or web address] Orig Print D/T: S: 12/08/2018 () CTDI: DLP: PAGE 1 Signed Repo rt CBC W/AUTO [id number] 13:17:00* Test Item Value Reference Range Comments WHITE BLOOD CELL (test code=WBC) 6.0 K/mm3 4.5-12.5 RED BLOOD CELL (test code=RBC) 4.65 mill/mm3 3.7-5.2 HEMOGLOBIN (test code=HGB) 13.7 gram/dL 11.5-15.5 HEMATOCRIT (test code=HCT) 42.7 % 36.0-46.0 MEAN CELL VOLUME (test code=MCV) 91.8 fL 80-98 MEAN CELL HGB (test code=MCH) 29.5 picogram 27.0-33.0 MEAN CELL HGB CONCETRATION (test code=MCHC) 32.1 gram/dL 33.0-36.0 RED CELL DISTRIBUTION WIDTH (test code=RDW) 13.7 % 11.6-16.2 RED CELL DISTRIBUTION WIDTH SD (test code=RDW-SD) 45.4 fL 39.1-52.0 PLATELET COUNT (test code=PLT) 282 K/mm3 150-450 MEAN PLATELET VOLUME (test code=MPV) 10.4 fL 6.7-11.0 NEUTROPHIL % (test code=NT%) 56.6 % 39.0-69.0 LYMPHOCYTE % (test code=LY%) 33.2 % 25.0-55.0 MONOCYTE % (test code=MO%) 8.1 % 0.0-10.0 EOSINOPHIL % (test code=EO%) 1.8 % 0.0-5.0 BASOPHIL % (test code=BA%) 0.3 % 0.0-1.0 NEUTROPHIL # (test code=NT#) 3.40 K/mm3 1.8-7.7 LYMPHOCYTE # (test code=LY#) 2.00 K/mm3 1.0-5.0 MONOCYTE # (test code=MO#) 0.49 K/mm3 0-0.8 EOSINOPHIL # (test code=EO#) 0.11 K/mm3 0.0-0.5 BASOPHIL # (test code=BA#) 0.02 K/mm3 0.0-0.2 CT BRAIN WO [facility] [address] [address] Patient Name: LOAN THOMPSON MR #: [id number] : 1955 Age/Sex: 62/F Req #: [id number] Adm Physician: Ordered by: ANTOLIN GERBER MD Report #: [id number] Location: CT Room/Bed: Procedure: [id number] CT/CT BRAIN WO Exam Date: Exam Time: 0940 REPORT STATUS: Signed Exa m: Head CT without contrast History: Headache Comparison studies: None Technique: Axial images were obtained from the skull base to the vertex. C oronal and sagittal images reconstructed from the axial data. Intravenous cont rast: None Findings: Scalp: No abnormalities. Bones: No fractures, b lastic or lytic lesions. Brain sulci: Appropriate for age. Ventricles: No rmal in size and configuration. No hydrocephalus. Extra-axial spaces: No rob s, no fluid collection. Parenchyma: No abnormal densities. No masses , acute hemorrhage, acute or chronic vascular insults. Sellar/suprasellar r egion: No abnormalities. Craniocervical junction: Patent foramen magnum. No Ch iari one malformation. IMPRESSION: No abnormalities. Signed b y: Dr. Ro Torres M.D. on 09/13/2017 10:15 AM Dictated By: RO LIRIANO MD [id number] Transcri bed By: EDDIE on 09/13/17 1015 COPY TO: ANTOLIN GERBER MD
[2019-03-13 14:13] VITALS: BP 135/81
[2019-03-13 15:30] VITALS: BP 141/77
--- NOTE | 2019-03-13 15:30 | NUR ---
1530 Bedside report received from Pasha STEEN. Identiferx2 Perclose rt groin [facility] Dr Rincon Minimal CAD Rx tx.Alert oriented and appropriate, PERRLA, respirations even and unlabored to room air. Pulses x4 extremities equal and strong. Pedal pulses PT/DP and marked. Cap fill brisk < 3 sec. Skin warm and dry integrity appears D/I. IV 20g to arm iv infusing 100cchr via controller. Presents healthy w/o s/s of infiltration or complaint. Abdomen soft and supple. pt offered toileting, denies need to urinate or defecate. No personal affects with patient. Family Daughter Kaylen at bedside. Pt and family verbalizes understanding of POC. Currently w/o complaint of pain or need. Fpr dc and 1600pm. kimber/pita
[2019-03-13 15:45] VITALS: BP 129/66
[2019-03-13 16:00] VITALS: BP 129/70
--- NOTE | 2019-03-13 16:00 | NUR ---
1600 Pt meets DC criteria. Rt Perclose groin site assessed for s/s of complication and presence of hematoma. warm, dry, no discolor, and pulses present. IV removed from arm. Distal tip appears intact. VS WNL. Pt denies pain, sob, or need at this time. Family Kaylen Daughter was present on review of discharge paperwork and follow up instructions. verbalized understanding. Pt to wheelchair and transported to front of hospital. Transferred to private vehicle under own strength w/o incident with DC paperwork in hand. -kimber/pita
--- NOTE | 2019-03-13 16:46 | Operative Report ---
DATE OF PROCEDURE: 03/13/2019 SURGEON: Petros Rincon MD INDICATIONS: 1. Coronary artery disease, unstable angina with abnormal stress test. 2. Carotid artery disease. PROCEDURES PERFORMED: 1. Left heart catheterization, selective coronary angiography. 2. Bilateral extracranial carotid angiograms. 3. Deployment of right groin, Perclose closure device. COMPLICATIONS: None. RECOMMENDATIONS: Medical therapy with initiation of long-acting nitrates for coronary spasm. DESCRIPTION OF PROCEDURE: Access was obtained in the right femoral artery. A 6-Pashto sheath was placed. Diagnostic coronary angiogram revealed minimal coronary artery disease in all coronary systems. Severe spasm of the left anterior descending, left main and circumflex arteries were noted. LV end-diastolic pressure of 10. No gradient across the aortic valve on pullback. Bilateral extracranial common carotid artery cannulation was performed with injections of the extracranial carotid circulation. Mild disease in both internal carotid arteries, less than 10% luminal stenosis with extreme tortuosity. No intervention is deemed necessary. Right groin repaired using Perclose. The patient discharged home same day. Petros Rincon MD [facility]/MOD[facility] /[id number]
== END | disposition home or self-care (01) ==
LOC: CATH LAB 12:14
PROVIDERS: ATTEND Internal Medicine Interventional Cardiology
DX: I25.110 Atherosclerotic heart disease of native coronary artery with unstable angina pectoris (principal); I65.29 Occlusion and stenosis of unspecified carotid artery; R07.9 Chest pain, unspecified; I10 Essential (primary) hypertension; E78.00 Pure hypercholesterolemia, unspecified; Z87.891 Personal history of nicotine dependence
CPT/HCPCS: 36222; 36415; 80053; 85025; 85610; 93458; C1725; C1769; J1644; J2001; J2250; J3010; J7030; Q9967

== ENCOUNTER → 2024-05-18 | Outpatient (RCR) | payer MEDICARE ==
[~2024-05-18] MED LIST changes: +DILTIAZEM 24HR240 M1; -FENTANYL CITRATE/PF 100MCG/2 ML INJ ONE; +FUROSEMIDE40 MG PO; -HEPARIN SOD (PORCINE) 1000 UNIT/ML 30ML ONE; -HEPARIN SOD/SOD CHLORIDE 2,000 ML ONE; +HYDRALAZINE HCL25 MG PO; -IOPAMIDOL 370 MG/ML 200 ML INFUS..BTL INJ ONE; -LIDOCAINE HCL 2% LOCAL 20 ML VIAL ONE; +LOSARTAN POTASS25 MG PO; +MATZIM LA360 MG PO; +MELOXICAM7.5 MG PO; -MIDAZOLAM HCL 2 MG/2 ML VIAL ONE; +MONTELUKAST SOD10 MG PO; +NEURONTIN300 MG PO; +NEXIUM40 MG PO; -SODIUM CHLORIDE 0.9% 1000ML 1,000 ML ONE; +VENLAFAXINE HCL75 MG PO; -VERAPAMIL HCL 2.5 MG/ML 2 ML VIAL ONE; +VITAMIN D
== END ==
LOC: PT 05-04 13:03
PROVIDERS: ATTEND Podiatrist Foot & Ankle Surgery
DX: M76.62 Achilles tendinitis, left leg (principal); M25.572 Pain in left ankle and joints of left foot; M62.81 Muscle weakness (generalized)

== ENCOUNTER 2024-06-17 09:00 | Outpatient (RCR) | payer MEDICARE | END 2024-06-18 | LOC: PT 09:00 | PROVIDERS: ATTEND Podiatrist Foot & Ankle Surgery | DX: M76.62 Achilles tendinitis, left leg (principal); M62.81 Muscle weakness (generalized); M25.572 Pain in left ankle and joints of left foot ==

== ENCOUNTER 2024-07-14 09:00 | Outpatient (RCR) | payer MEDICARE | END 2024-07-18 | LOC: PT 09:00 | PROVIDERS: ATTEND Podiatrist Foot & Ankle Surgery | DX: M76.62 Achilles tendinitis, left leg (principal); M25.572 Pain in left ankle and joints of left foot; M25.571 Pain in right ankle and joints of right foot; M62.81 Muscle weakness (generalized) ==

== ENCOUNTER 2024-07-24 14:18 | Outpatient (RCR) | payer MEDICARE | END 2024-08-18 | LOC: PT 14:18 | PROVIDERS: ATTEND Podiatrist Foot & Ankle Surgery | DX: M76.62 Achilles tendinitis, left leg (principal); M25.572 Pain in left ankle and joints of left foot; M62.81 Muscle weakness (generalized) ==